=== PATIENT | female | born 1980 | race Caucasian/White ===

== ENCOUNTER 2018-06-14 10:00 | Outpatient (CLI) | payer OTHER ==
--- NOTE | 2018-06-14 17:54 | ULT ---
THYROID ULTRASOUND: 06/14/2018 HISTORY/TECHNIQUE: Ultrasonography of the thyroid was done due to an abnormal CT of the neck. Multiple images were obtained and reviewed. FINDINGS: The thyroid is quite large, with the right lobe measuring 5.4 x 2.5 x 2 cm and the left lobe measurin g 5.5 x 1.8 x 1.5 cm. There are multiple cystic and nodular densities scattered throughout each lobe . Some seem almost purely cystic, some are mixed, some are solid, and some are complex with soft tis rosy elements within them. At least four nodules are seen in the right lobe, from superior to inferio r, measuring 0.7 cm, 2.2 cm, 1.0 cm, and 0.8 cm. The left lobe has two larger nodules, superiorly an d inferiorly, and two tiny ones in the mid portions. From top to bottom, the maximal diameters were 2, 0.5, 0.3, and 1.2 cm. IMPRESSION: Prominent thyroid enlargement with multiple cystic, solid, and complex nodules. This may be nothing more than a multinodular goiter. Some of the nodules that were cystic but seemed to have internal so lid components worry me a bit more, but the multiplicity of findings makes a benign entity a little m ore probable than not. The patient probably could benefit from referral and determination of exactly what sort of followup would be most appropriate. CODE T POS: HOME
[2018-06-14 18:07] LABS: Free Thyroxine Index 2.24 (1.4-3.1); T4 8.2 ug/dL (4.87-11.72)
== END 2018-06-14 10:01 | disposition home or self-care (01) ==
LOC: BURULT 10:00
PROVIDERS: ATTEND Family Medicine
DX: E04.2 Nontoxic multinodular goiter (principal)
CPT/HCPCS: 36415; 76536; 84436; 84479